=== PATIENT | male | born 1960 | race Asian ===

== ENCOUNTER 2018-03-15 07:29 | Emergency (ER) | payer BC | END 2018-03-15 09:20 | disposition home or self-care (01) | LOC: FTE 07:29 | DX: J02.9 Acute pharyngitis, unspecified (principal); E10.9 Type 1 diabetes mellitus without complications; Z79.01 Long term (current) use of anticoagulants; Z79.4 Long term (current) use of insulin | CPT/HCPCS: 99283 ==